=== PATIENT | male | born 1955 | race Caucasian/White ===

== ENCOUNTER → 2016-11-30 | Outpatient (CLI) | payer OTHER ==
[~2016-11-30] VITALS: Ht 180.3 cm; Wt 132.9 kg
[~2016-11-30] MED LIST: AMLODIPINE BESY10 MG PO; BUSPAR15 MG PO; CAMPRAL333 MG PO; CELEXA40 MG PO; LISINOPRIL-HCT1 EAC3 PO; MEN'S MULTI-VI1 EACH PO; VASCEPA1 GM PO; VITAMIN D-32000 UNI2 PO; VITAMIN E1000 UNI1 PO; ZOFRAN4 MG PO
== END | disposition home or self-care (01) ==
LOC: OPR 08:32 → EDSTATUS 09:00
PROC: 0FB03ZX Excision of Liver, Percutaneous Approach, Diagnostic (ICD-10-PCS; principal; 2016-11-30)
DX: K76.0 Fatty (change of) liver, not elsewhere classified (principal); E78.5 Hyperlipidemia, unspecified; I10 Essential (primary) hypertension; F32.9 Major depressive disorder, single episode, unspecified; F10.21 Alcohol dependence, in remission
CPT/HCPCS: 77012; 85027; 85610; 85730; 88307; 88313; J3010

== ENCOUNTER 2017-07-25 19:54 | Emergency (ER) | payer SELFPAY ==
[~2017-07-25] VITALS: Ht 177.8 cm; Wt 125.9 kg
[2017-07-25 20:24] LABS: BASOPHIL (%) 0.8 % (0-1); BASOPHIL COUNT 0.1 K/uL (0-0.1); EOSINOPHIL COUNT 0.2 K/uL (0-0.3); HEMATOCRIT 44.5 % (38.0-50.0); HEMOGLOBIN 16.2 G/DL (12.5-16.6); IMMATURE GRANULOCYTE (%) 0.4 % (0.0-0.7); LYMPHOCYTE (%) 35.4 % (15-42); LYMPHOCYTE COUNT 2.7 K/uL (1.0-2.8); MCH 32.8 PG (29.0-34.0); MCHC 36.4 G/DL (30.0-36.0); MCV 90.1 FL (86-99); MONOCYTE (%) 8.3 % (3-12); MONOCYTE COUNT 0.6 K/uL (0-0.8); NEUTROPHIL (%) 53.1 % (45-76); PLATELET COUNT 270 K/uL (156-360); RBC DIS.WIDTH-CV 12.6 % (11.8-14.6); RBC DIS.WIDTH-SD 41.6 % (39-53); RED BLOOD COUNT 4.94 M/uL (4.00-5.50); WHITE BLOOD COUNT 7.6 K/uL (4.1-10.2)
[2017-07-25 20:30] VITALS: BP 114/77
[2017-07-25 20:44] LABS: TROP-I INTERPRETATION NEGATIVE; TROPONIN-I < 0.01 ng/mL (0.0-0.30)
[2017-07-25 20:57] LABS: INTER. NORMALIZED RATIO 1.1; PTT 27.8 SEC (25-37)
[2017-07-25 21:01] LABS: AMYLASE 63 IU/L (1-118); CHLORIDE 104 mEq/L (99-109); POTASSIUM 3.5 mEq/L (3.7-5.4); SODIUM 143 mEq/L (136-147)
[2017-07-25 21:02] LABS: ALBUMIN 4.1 g/dL (3.2-4.8)
[2017-07-25 21:03] LABS: GLUCOSE 119 mg/dL (70-99)
[2017-07-25 21:05] LABS: TOTAL PROTEIN 6.7 g/dL (6.4-8.3)
[2017-07-25 21:06] LABS: SERUM ETHYL ALCOHOL 343 mg/dL
[2017-07-25 21:07] LABS: CREATININE 0.8 mg/dL (0.6-1.3); GFR ESTIMATE (CALCULATED) > 59 mL/min/ (58.99-99999); TOTAL BILIRUBIN 0.4 mg/dL (0.0-1.0)
[2017-07-25 21:08] LABS: ALKALINE PHOSPHATASE 51 IU/L (3-129); UREA NITROGEN (BUN) 14 mg/dL (9-23)
[2017-07-25 21:10] LABS: AST (GOT) 31 IU/L (2-34); LIPASE 41 U/L (1.0-51.0)
[2017-07-25 21:11] LABS: ALT (GPT) 47 IU/L (3-49)
== END 2017-07-25 22:28 | disposition left against medical advice (07) ==
LOC: EME → EDBD 19:54 → EME 19:54
PROVIDERS: Emergency Medicine
DX: F10.129 Alcohol abuse with intoxication, unspecified (principal); Y90.8 Blood alcohol level of 240 mg/100 ml or more; I10 Essential (primary) hypertension; Z53.20 Procedure and treatment not carried out because of patient's decision for unspecified reasons
CPT/HCPCS: 70450; 71045; 80048; 80053; 82150; 83690; 84484; 85025; 85610; 85730; 93005; 99281; 99285; G0480; J7030